=== PATIENT | male | born 1970 | race Caucasian/White ===

== ENCOUNTER 2021-04-18 11:53 | Outpatient (CLI) | payer OTHER | END 2021-04-18 11:54 | disposition critical access hospital (66) | LOC: EMS 11:53 | DX: Z04.1 Encounter for examination and observation following transport accident (principal); M25.572 Pain in left ankle and joints of left foot; M25.552 Pain in left hip; M25.522 Pain in left elbow | CPT/HCPCS: A0425; A0429 ==

== ENCOUNTER 2021-04-18 12:24 | Emergency (ER) | payer OTHER ==
[2021-04-18] MEDS ORDERED: MORPHINE 2 MG/ML CARPUJECT IVP STA (12:43)
[2021-04-18] MEDS ORDERED: KETOROLAC 30 MG/ML VIAL IVP STA (12:43)
[2021-04-18] MEDS ORDERED: SODIUM CHLORIDE 0.9% 1,000 ML IV STA (12:43)
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
[2021-04-18] MEDS ORDERED: HYDROmorphone 1 MG/ML CARPUJECT IVP STA ×2 (13:47→15:01)
[2021-04-18] MEDS ORDERED: ceFAZolin 1 GM in SODIUM CHLORIDE 0.9% MINIBAG 100 ML IV STA (13:49)
[2021-04-18] MEDS ORDERED: ceFAZolin 1 GM VIAL ONE (13:58)
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
[2021-04-18] MEDS ORDERED: BACITRACIN ZINC OINT 1 PACKET TOP STA (15:50)
[2021-04-18 17:42] VITALS: BP 143/85
== END 2021-04-18 17:42 | disposition home or self-care (01) ==
LOC: ED 12:24
DX: S82.832A Other fracture of upper and lower end of left fibula, initial encounter for closed fracture (principal); S52.022A Displaced fracture of olecranon process without intraarticular extension of left ulna, initial encounter for closed fracture; S51.812A Laceration without foreign body of left forearm, initial encounter; S20.219A Contusion of unspecified front wall of thorax, initial encounter; S30.810A Abrasion of lower back and pelvis, initial encounter; S70.319A Abrasion, unspecified thigh, initial encounter; M25.562 Pain in left knee; M25.552 Pain in left hip; V20.4XXA Motorcycle driver injured in collision with pedestrian or animal in traffic accident, initial encounter; Y92.410 Unspecified street and highway as the place of occurrence of the external cause
CPT/HCPCS: 13121; 71045; 73080; 73502; 73562; 73610; 96365; 96375; 96376; 99284; 99285; A9270; J1170